=== PATIENT | female | born 1955 | race Caucasian/White ===

== ENCOUNTER 2022-04-06 16:14 | Inpatient (IN) | payer MEDICARE ==
[~2022-04-06] VITALS: Wt 66.0 kg
[2022-04-06] VITALS (7 sets, daily range): BP systolic 102–126; BP diastolic 47–66; PULSE 91–101; TEMP 98.2–99.5
[~2022-04-06 16:14] MED LIST: BACTRIM DS 8001 TAB PO; LORTAB 5/500 501 TAB PO; NO HOME MEDICATIONS
[2022-04-06] MEDS ORDERED: HYDROXYURE500 MG/CAP PO (16:31)
[2022-04-06] MEDS ORDERED: PREDNISONE20 MG PO (16:32)
[2022-04-06] MEDS ORDERED: VANTIN 200200 MG/TAB (16:32)
[2022-04-06 17:07] LABS: BASO # 0.1 K/mm3 (0.0-0.2); BASO % 1.6 % (0.0-2.0); EOS # 0.1 K/mm3 (0.0-0.7); EOS % 1.4 % (0.0-4.0); GRAN # 2.6 K/mm3 (1.4-6.5); GRAN % 53.7 % (42.2-75.2); LYMPH # 0.7 K/mm3 (1.2-3.4); LYMPH % 15.1 % (20.0-51.0); MEAN CELL VOLUME 109 fl (80.0-100.0); MEAN CORPUSCULAR HGB CONC 35 g/dl (33.0-37.0); MEAN PLATELET VOLUME 12.4 fl (7.4-10.4); MONO # 0.5 K/mm3 (0.1-0.6); MONO % 10.8 % (1.7-9.3); RED BLOOD COUNT 1.53 M/mm3 (4.10-5.30)
[2022-04-06 17:12] LABS: HEMATOCRIT 16.6 % (37.0-47.0); HEMOGLOBIN 5.8 g/dl (12.5-16.0); MEAN CORPUSCULAR HEMOGLOBIN 38 pg (27-31)
[2022-04-06 17:13] LABS: PLATELET COUNT 30 K/mm3 (130-400)
[2022-04-06 17:30] LABS: TROPONIN-I 0.013 ng/mL (0.00-0.033)
[2022-04-06 17:51] LABS: ALBUMIN 3.7 gm/dL (3.4-4.8); BILIRUBIN,TOTAL 0.7 mg/dL (0.2-1.2); CALCIUM 8.6 mg/dL (8.4-10.2); CREATININE, serum 0.71 mg/dL (0.57-1.11); POTASSIUM 3.9 mmol/L (3.5-4.5); TOTAL PROTEIN 6.2 gm/dL (6.2-8.1)
[2022-04-06 18:14] LABS: BAND 7 % (0-10); BASOPHIL 5 % (0-2); EOSINOPHIL 3 % (0-4); LYMPHOCYTE 27 % (20.0-51.0); NEUTROPHILS 53 % (42.0-75.2)
[2022-04-06 18:15] LABS: HYPOCHROMIA 1+; PLATELET ESTIMATE DECREASED (NORMAL)
[2022-04-06 19:51] LABS: IRON,SERUM 197 ug/dL (50-175)
[2022-04-06 20:03] LABS: COLLECTION METHOD CLEAN CATCH
[2022-04-06 20:08] LABS: PH 7 (5-8); SQUAMOUS EPITHELIAL None Seen /hpf (0-10); URINE APPEARANCE Clear (CLEAR/HAZY); URINE BACTERIA None Seen /hpf (NONE SEEN); URINE BILIRUBIN Negative (NEGATIVE); URINE BLOOD Negative (NEGATIVE); URINE COLOR Straw (YELLOW); URINE GLUCOSE Negative (NEGATIVE); URINE KETONE Negative (NEGATIVE); URINE LEUKOCYTE ESTERASE Negative (NEGATIVE); URINE NITRATE Negative (NEGATIVE); URINE PROTEIN(semi-quant) Negative (NEGATIVE); URINE RBC None Seen /hpf (0-2); URINE UROBILINOGEN Negative (NEGATIVE)
[2022-04-06 20:21] LABS: RETIC # 0.01 M/mm3 (0.02-0.16); RETIC % 0.9 % (0.5-3.52)
--- NOTE | 2022-04-06 22:32 | NUR ---
PATIENT ADMITTED TO MEDICAL FLOOR. PATIENT CONTINUES TO ENDORSE SHORTNESS OF BREATH. SATTING WELL ON ROOM AIR. 1 UNIT OF PRBCS TRANSFUSED. PER HOSPITALIST, WILL RECHECK HGB IN APPROX ONE HOUR. ALL SAFETY MEASURES MAINTAINED. WILL CONTINUE TO MONITOR
[2022-04-06 23:27] LABS: HEMOGLOBIN 6.9 g/dl (12.5-16.0)
[2022-04-06 23:28] LABS: HEMATOCRIT 19.1 % (37.0-47.0)
[2022-04-07] VITALS (13 sets, daily range): BP systolic 91–127; BP diastolic 36–59; PULSE 78–91; TEMP 97.9–99
[2022-04-07 06:20] LABS: MEAN CORPUSCULAR HGB CONC 35 g/dl (33.0-37.0); MEAN PLATELET VOLUME 10.1 fl (7.4-10.4); RED BLOOD COUNT 2.31 M/mm3 (4.10-5.30); REDCELL DISTRIBUTION WIDTH-CV 16.6 % (11.5-14.5)
[2022-04-07 06:36] LABS: CALCIUM 8.5 mg/dL (8.4-10.2); CREATININE, serum 0.73 mg/dL (0.57-1.11); MAGNESIUM 2.1 mg/dL (1.6-2.6); POTASSIUM 4.2 mmol/L (3.5-4.5)
[2022-04-07 06:44] LABS: HEMATOCRIT 23.1 % (37.0-47.0); HEMOGLOBIN 8.1 g/dl (12.5-16.0); MEAN CORPUSCULAR HEMOGLOBIN 35 pg (27-31)
[2022-04-07 06:45] LABS: PLATELET COUNT 27 K/mm3 (130-400)
[2022-04-07 06:46] LABS: MEAN CELL VOLUME 100 fl (80.0-100.0)
[2022-04-07 07:24] LABS: BAND 6 % (0-10); BASOPHIL 3 % (0-2)
[2022-04-07 07:26] LABS: ANISOCYTOSIS 1+; PLATELET ESTIMATE DECREASED (NORMAL)
[2022-04-07 07:30] LABS: LYMPHOCYTE 17 % (20.0-51.0); NEUTROPHILS 64 % (42.0-75.2)
--- NOTE | 2022-04-07 10:40 | NUR ---
PATIENT RESTING COMFORTABLY IN BED. VOCALIZING ANTICIPATION TO BE DISCHARGED HOME. NO COMPLAINTS OF PAIN. NO DYSPNEA, OR SOB. VERY PLESANT. INDEPENDENT IN ROOM .
--- NOTE | 2022-04-07 10:58 | NUR ---
Territory Sales Representative met with patient for intake assessment/discharge planning. She presents alert and oriented, and she consents to a discussion stating, "I want to go home. Tell the doctor I'm ready to go home." Patient informs she lives at home with her daughter Estefany, and her son-in-law Milton Salazar ([phone]) and their two children ages 3 and 5. Another 15 year old child lives with them part-time. She states her home is large enough for all of them, and for this she is grateful. She confirms she is independent in her ADLS/IADLS at home, and she uses no medical equipment; she has no oxygen needs. She states her primary care physician is Dr. Zavala and Dr. Dave manages her "platelet levels." She expresses frustration that Dr. Dave hasn't been reached at her treatment team's attempt to contact yesterday and today. Patient denies difficulty obtaining her medications, and she utilizes [facility]. She has received DPOA-HC paperwork and discussed with her family. Her daughter took the paperwork home and her son-in-law Milton and her son, Leonid Dumont ([phone]), will be appointed as her DPOA-HC; daughter will assure the paperwork is completed and filed in her medical record. Patient's only request at this time is that her physician comes to see her to discuss discharge plans; she identifies no needs at this time and a plan to go home to her family. *Discharge plan: home with adult child and family*
[2022-04-07 12:11] LABS: ALBUMIN 3.4 gm/dL (3.4-4.8); BILIRUBIN,TOTAL 0.8 mg/dL (0.2-1.2); TOTAL PROTEIN 5.7 gm/dL (6.2-8.1)
[2022-04-07 12:28] LABS: BILIRUBIN,DIRECT 0.3 mg/dL (0.0-0.5)
--- NOTE | 2022-04-07 16:57 | NUR ---
RECIEVED PHONE CALL FROM [employer], PATIENT HR IN 160'S. CLARIFIED THAT THE TACHYCARDIA LASTED ROUGHLY 30SEC. LIBRARY SERIALS ASSISTANT INDICATED THAT RHYTHM "SNAPPED ON AND OFF AGAIN". AUTHOR REVIEWED PRINTOUT OF STRIP. VERIFIYING PATIENT HAD RUN OF SVT. PATIENT HAS NO COMPLAINTS OF CHEST PAIN. SHE HAD JUST RETURNE TO BED, HAVING USED THE RESTROOM, AND PLACING HER SCDS BACK ON HER LOWER EXTREMITIES. SHE DID DESCRIBE HAVING A COUGHING FIT AND FEELING CHEST PALPITATIONS. ALSO STATED THAT THEY SUBSIDED AFTER SETTELING IN BED AND RESTING. DR. ROGERS NOTIFIED BY PHONE, ORDERED EKG. ORDER PLACED AND RT NOTIFIED. AWAITING RESULTS.
--- NOTE | 2022-04-07 18:02 | NUR ---
PATIENT INDEPENDENT IN ROOM, SHOWERED INDEPENDENTLY. NO COMPLAINTS OF PAIN. SOME SKIN DISCOLORATION ON FEET, ANKLES AND INNER THIGHS. DR. ESTRELLA CONCERNS FOR PETECHIA. PLATLETS AT 27 THIS AM. WILL CONTINUE TO MONITOR. PATIENT EDUCATED ON SAFE MOBILITY, SOFT BRISTLE TOOTH BRUSH, NO SHAVING AT THIS TIME. DARK PURPLE BRUISE ON LEFT AC FROM MORNING BLOOD DRAW. PATIENT HAD NOTED RUN OF SVT TODAY. EXPERIENCED SOME PALPATIONS. EKG ORDERED, NSR. TELE STRIP AND EKG ON CHART. NO OTHER SIGNIFICANT EVENTS THIS SHIFT. PATIENT VERY PLESANT.
[2022-04-08 03:33] VITALS: BP 101/55; PULSE 77; TEMP 98
--- NOTE | 2022-04-08 06:25 | NUR ---
ASSUMED CARE OF PATIENT AFTER RECEIVING BEDSIDE REPORT. ASSESSMENT COMPLETED, VSS. PATIENT DENIES COMPLAINTS, CONCERNS, AND QUESTIONS AT THIS TIME. NO ACUTE EVENTS OVERNIGHT. BEDSIDE REPORT TO BE GIVEN TO ONCOMING SHIFT.
[2022-04-08 06:41] LABS: MEAN CELL VOLUME 104 fl (80.0-100.0); MEAN CORPUSCULAR HGB CONC 34 g/dl (33.0-37.0); MEAN PLATELET VOLUME 13.1 fl (7.4-10.4); RED BLOOD COUNT 2.21 M/mm3 (4.10-5.30); REDCELL DISTRIBUTION WIDTH-CV 16.6 % (11.5-14.5)
[2022-04-08 06:54] LABS: HEMATOCRIT 22.9 % (37.0-47.0); HEMOGLOBIN 7.8 g/dl (12.5-16.0); MEAN CORPUSCULAR HEMOGLOBIN 35 pg (27-31)
[2022-04-08 06:55] LABS: PLATELET COUNT 23 K/mm3 (130-400)
[2022-04-08 07:04] VITALS: BP 111/49; PULSE 80; TEMP 97.9
[2022-04-08 09:35] LABS: PATHOLOGY DIFF REVIEW OK +
--- NOTE | 2022-04-08 10:56 | NUR ---
Assessment completed, alert/oriented, vital signs stable, denies pain, reports feeling "about the same", still has moist non-prodcutive cough, some coarse sounds and exp wheezing in right lung [place]/ diminsihed bases, oxygen levels are WNL on room air, PUlm consulted and making some changes to ABx and adding some PO steroids, hgbn and Platelets both came down slightly from yesterday/ ONc consulted, no blood products ordered to be given at this time, heart RRR/ distal pulses are palpable, right arm IV infiltrated/ removed and started new IV to left forearm, patient wants to go home, denies needs at this time, will continue to monitor
[2022-04-08 11:25] VITALS: BP 127/49; PULSE 92; TEMP 97.7
--- NOTE | 2022-04-08 12:19 | NUR ---
Mandy: Other Situation: Electric Installer stopped by room on rounds Background: Pt is doing well. No complaints Assessment: Had a good conversation. Recommendation: Electric Installer will follow up as needed
[2022-04-08 15:37] VITALS: BP 150/53; PULSE 113; TEMP 97.8
[2022-04-08 18:37] LABS: MEAN CELL VOLUME 102 fl (80.0-100.0); MEAN CORPUSCULAR HGB CONC 35 g/dl (33.0-37.0); MEAN PLATELET VOLUME 12.5 fl (7.4-10.4); RED BLOOD COUNT 2.46 M/mm3 (4.10-5.30); REDCELL DISTRIBUTION WIDTH-CV 15.9 % (11.5-14.5)
[2022-04-08 18:38] LABS: HEMOGLOBIN 8.7 g/dl (12.5-16.0); MEAN CORPUSCULAR HEMOGLOBIN 35 pg (27-31)
[2022-04-08 18:40] LABS: PLATELET COUNT 24 K/mm3 (130-400)
[2022-04-08 19:23] LABS: BAND 9 % (0-10); BASOPHIL 2 % (0-2); EOSINOPHIL 1 % (0-4); LYMPHOCYTE 11 % (20.0-51.0); METAMYELOCYTE 3 % (0-0); MYELOCYTE 1 % (0-0); NEUTROPHILS 68 % (42.0-75.2); NUCLEATED RED BLOOD CELL 1 (0-6); PLATELET ESTIMATE DECREASED (NORMAL)
[2022-04-08 19:24] LABS: ANISOCYTOSIS 1+
[2022-04-08 19:58] VITALS: BP 125/48; PULSE 100; TEMP 98.6
[2022-04-09 00:29] VITALS: BP 112/51; PULSE 100; TEMP 98.2
[2022-04-09 04:30] VITALS: BP 109/50; PULSE 96; TEMP 98.4
--- NOTE | 2022-04-09 06:00 | NUR ---
RESTED THOUGHT THE NIGHT WITHOUT INCIDENT. NEEDS MET.
--- NOTE | 2022-04-09 06:56 | NUR ---
Report received, assumed care for day shift.
[2022-04-09 07:31] LABS: MEAN CELL VOLUME 103 fl (80.0-100.0); MEAN CORPUSCULAR HGB CONC 34 g/dl (33.0-37.0); MEAN PLATELET VOLUME 11.8 fl (7.4-10.4); RED BLOOD COUNT 2.29 M/mm3 (4.10-5.30); REDCELL DISTRIBUTION WIDTH-CV 15.9 % (11.5-14.5)
[2022-04-09 07:33] LABS: HEMATOCRIT 23.5 % (37.0-47.0); MEAN CORPUSCULAR HEMOGLOBIN 35 pg (27-31)
[2022-04-09 07:34] LABS: PLATELET COUNT 21 K/mm3 (130-400)
[2022-04-09 07:55] VITALS: BP 104/49; PULSE 77; TEMP 98
--- NOTE | 2022-04-09 08:00 | NUR ---
Assessment complete. A&Ox3. Denies pain/nausea/shortness of breath. VS stable. INT to left [id number] well no s/s of infiltration noted. TELE reporting SR/ST. Noted to have occasional exp wheeze to LLL, otherwise clear. Plan of care discussed for this shift to include meds/breathing tx/calling for questions/concerns. Verbalizes understanding. Call light in reach. Will monitor.
--- NOTE | 2022-04-09 08:01 | NUR ---
Critical lab called to MARIE Bailey-platelet count of 21. No new orders received.
[2022-04-09 08:27] LABS: BAND 9 % (0-10); BASOPHIL 8 % (0-2); EOSINOPHIL 1 % (0-4); LYMPHOCYTE 29 % (20.0-51.0); METAMYELOCYTE 5 % (0-0); MYELOCYTE 3 % (0-0); NEUTROPHILS 43 % (42.0-75.2); OVALOCYTES 1+; PLATELET ESTIMATE DECREASED (NORMAL)
[2022-04-09 08:28] LABS: TEAR DROP CELLS 1+
[2022-04-09] MEDS ORDERED: FOLIC ACID 11 MG/TA1 PO (09:37)
[2022-04-09] MEDS ORDERED: CEFTIN500 MG PO (09:38)
[2022-04-09] MEDS ORDERED: RT ADVAIR HFA 1112 G IH (09:38)
[2022-04-09] MEDS ORDERED: PREDNISONE10 MG PO (09:39)
--- NOTE | 2022-04-09 09:45 | NUR ---
Dr Owen/MARIE Valle at bedside.
--- NOTE | 2022-04-09 10:12 | NUR ---
The patient is to discharge back home with her family today, 04/09. BIJAN met with the patient and presented and read the IM form outloud to her. The patient verbalized understanding of agreement to discharge today. She signed the form and BIJAN provided her with a copy. She had no questions or concerns for SW. No additional needs at this time.
--- NOTE | 2022-04-09 10:20 | NUR ---
Discharge instructions given both verbal and handwritten. Discusse f/u appt/home medications/s/s of infection and when to return to the ED. Verbalizes understanding/denies quesitons/concerns. 22g INT to left forearm DCd-cath intact. Instructed to excelsior picker home medications at pharmacy and take as prescribed. Currently waiting on ride.
--- NOTE | 2022-04-09 11:22 | NUR ---
Escorted off floor by KIRTI Vargas via wheelchair with family in stable condition.
[2022-04-10 10:19] LABS: ANA SCREEN with REFLEX Negative (Negative)
[2022-04-10 19:29] LABS: ANGIOTENSIN CONVERTING ENZYME 22 U/L (16 - 85)
[2022-04-12 20:03] LABS: C-ANCA 36 U/mL (0-99)
== END 2022-04-09 11:23 | disposition home or self-care (01) | DRG 812 ==
LOC: COL.ER 16:14 → MEDICAL 18:41
PROVIDERS: Physician Assistant; Student in an Organized Health Care Education/Training Program; ADMIT Internal Medicine
DX: D64.9 Anemia, unspecified (principal); J44.1 Chronic obstructive pulmonary disease with (acute) exacerbation; J44.0 Chronic obstructive pulmonary disease with (acute) lower respiratory infection; R16.1 Splenomegaly, not elsewhere classified; J47.9 Bronchiectasis, uncomplicated; D45 Polycythemia vera; D47.3 Essential (hemorrhagic) thrombocythemia; J20.9 Acute bronchitis, unspecified; Z87.891 Personal history of nicotine dependence; Z79.52 Long term (current) use of systemic steroids
CPT/HCPCS: 99223-AI; 99233-AI; 99239; J0692; J0696; J1100; J7512; P9016; Q9967

== ENCOUNTER 2022-04-15 07:43 | Outpatient (CLI) | payer MEDICARE ==
[~2022-04-15] VITALS: Ht 162.6 cm; Wt 64.8 kg
[~2022-04-15 07:43] MED LIST changes: +CEFTIN500 MG PO; +FOLIC ACID 11 MG/TA1 PO; +HYDROXYURE500 MG/CAP PO; +PREDNISONE10 MG PO; +PREDNISONE20 MG PO; +RT ADVAIR HFA 1112 G IH; +VANTIN 200200 MG/TAB
[2022-04-15 08:21] VITALS: BP 121/50; PULSE 99; TEMP 97.9
[2022-04-15 08:44] LABS: MEAN CELL VOLUME 102 fl (80.0-100.0); MEAN CORPUSCULAR HGB CONC 35 g/dl (33.0-37.0); MEAN PLATELET VOLUME 12.5 fl (7.4-10.4); RED BLOOD COUNT 2.27 M/mm3 (4.10-5.30); REDCELL DISTRIBUTION WIDTH-CV 15.5 % (11.5-14.5)
[2022-04-15 08:53] LABS: HEMATOCRIT 23.1 % (37.0-47.0); HEMOGLOBIN 8.1 g/dl (12.5-16.0); MEAN CORPUSCULAR HEMOGLOBIN 36 pg (27-31)
[2022-04-15 08:54] LABS: PLATELET COUNT 23 K/mm3 (130-400)
--- NOTE | 2022-04-15 08:55 | NUR ---
Lashaun called from lab to report a critical lab value for platelets: 23 (L). RN verbally notified DR at this time in PACU. verbalized understanding. No new orders recieved.
[2022-04-15 09:35] LABS: BAND 13 % (0-10); BASOPHIL 2 % (0-2); EOSINOPHIL 2 % (0-4); LYMPHOCYTE 17 % (20.0-51.0); METAMYELOCYTE 3 % (0-0); MYELOCYTE 3 % (0-0); NEUTROPHILS 54 % (42.0-75.2)
[2022-04-15 09:36] LABS: PLATELET ESTIMATE DECREASED (NORMAL)
[2022-04-15 09:37] LABS: OVALOCYTES 1+; TEAR DROP CELLS 1+
[2022-04-15 10:10] VITALS: BP 100/43; PULSE 81; TEMP 97.8
--- NOTE | 2022-04-15 10:10 | NUR ---
PT arrived from procedure drowsy but oriented. Monitors applied and VSS Verbal report obtained from Fior RN: L side was used, PT has been flat for "a few minutes". Pt will remain flat for a full 10 minutes before RN is to check site. PT provided a warm muffin, juice and hot coffee per request. Denies nausea. Denies pain. Side rails x2. Call dominguez within reach on side table.
--- NOTE | 2022-04-15 10:23 | NUR ---
VSS. PT continues to deny nausea. NO vomiting. Denies pain. Site is dry and intact; no bleeding or drainage noted. Bandage remains clean. PT has had half her muffin and continues to drink coffee. Call dominguez remains within reach. PT expressed desire to be discharged.
[2022-04-15 10:25] VITALS: BP 98/45; PULSE 88
[2022-04-15 10:40] VITALS: BP 100/45; PULSE 87
--- NOTE | 2022-04-15 10:40 | NUR ---
VSS. PT continues to deny nausea. Site remains clean, dry and intact upon second observation. IV discontinued. Catheter tip intact. Pressure bandage applied. NO reddness or swelling noted. DC instructions and educational material reveiwed with the PT, who verbalized understanding and signed the realted paperwork. PT moved to bedside without difficulty, and denied needing assistance changing into personal clothes. Call dominguez remains within reach.
--- NOTE | 2022-04-15 11:10 | NUR ---
Pt taken via wheelchair to private vehicle for dc home with friend driving. Pt left with dc teaching packet and all personal belongings.
[2022-04-15 11:33] VITALS: BP 106/92; PULSE 81
== END 2022-04-15 11:10 | disposition home or self-care (01) ==
LOC: SDCO 07:43
PROVIDERS: Pathology Anatomic Pathology & Clinical Pathology
DX: C92.00 Acute myeloblastic leukemia, not having achieved remission (principal); Z87.891 Personal history of nicotine dependence
CPT/HCPCS: J2704; J7120

== ENCOUNTER 2022-06-12 06:55 | Outpatient (CLI) | payer MEDICARE ==
[~2022-06-12] VITALS: Ht 157.5 cm; Wt 62.0 kg
[2022-06-12 07:29] VITALS: BP 125/59; PULSE 60; TEMP 97
[2022-06-12] MEDS ORDERED: K-DUR 10 MEQ T10 MEQ PO (07:53)
[2022-06-12] MEDS ORDERED: LEVAQUIN 5500 MG/TA1 PO (07:58)
[2022-06-12] MEDS ORDERED: ZOVIRAX400 MG PO (07:58)
[2022-06-12] MEDS ORDERED: TOPROL XL 50MG50 MG PO (07:58)
[2022-06-12] MEDS ORDERED: ABSORBASE TOP (07:59)
[2022-06-12] MEDS ORDERED: NOXAFILTAB PO (08:00)
[2022-06-12] MEDS ORDERED: ZOFRAN ODT4 MG PO (08:00)
[2022-06-12] MEDS ORDERED: PHOS-NAK1 PDR PO (08:01)
[2022-06-12 08:27] LABS: MEAN CELL VOLUME 89 fl (80.0-100.0); MEAN CORPUSCULAR HGB CONC 32 g/dl (33.0-37.0); MEAN PLATELET VOLUME 13.9 fl (7.4-10.4); PLATELET COUNT 262 K/mm3 (130-400); RED BLOOD COUNT 2.87 M/mm3 (4.10-5.30); REDCELL DISTRIBUTION WIDTH-CV 19.7 % (11.5-14.5)
[2022-06-12 08:44] LABS: HEMATOCRIT 25.4 % (37.0-47.0); HEMOGLOBIN 8.1 g/dl (12.5-16.0); MEAN CORPUSCULAR HEMOGLOBIN 28 pg (27-31)
--- NOTE | 2022-06-12 08:45 | NUR ---
The patient was taken over via cart to the recovery room to be prepped for the procedure. MEET Hopper was notified of the patient's WBC 1.6 that was reported from the lab and she will let Dr. You know prior to the procedure. Will continue to montior the patient she returns to the unit.
[2022-06-12 08:53] LABS: ANISOCYTOSIS 2+; BAND 2 % (0-10); HYPOCHROMIA 1+; LYMPHOCYTE 9 % (20.0-51.0); METAMYELOCYTE 1 % (0-0); NEUTROPHILS 68 % (42.0-75.2); OVALOCYTES 1+; TEAR DROP CELLS 1+
[2022-06-12 08:54] LABS: PLATELET ESTIMATE DECREASED (NORMAL); SCHISTOCYTES 1+
[2022-06-12 09:35] VITALS: BP 113/67; PULSE 55; TEMP 97.2
--- NOTE | 2022-06-12 09:35 | NUR ---
The patient arrived back to [facility] from the recovery room at this time. The patient appears alert and oriented and denies any pain or nausea at this time. The patient is lying in the supine position as ordered post procedure. The patient's post procedure vital signs were started at this time. The patient has ice chips that she appears to be tolerating well. The patient denies wanting anything further to eat or drink at this time. The patient's 4x4 and bandaid to her left hip appears clean, dry and intact. Call light is within reach. Denies any further needs at this time.
[2022-06-12 09:50] VITALS: BP 123/49; PULSE 58
--- NOTE | 2022-06-12 09:50 | NUR ---
The patient continues to be in the supine position. Vital signs appear stable. Call light remains within reach.
[2022-06-12 10:05] VITALS: BP 98/48; PULSE 57
--- NOTE | 2022-06-12 10:05 | NUR ---
The patient verbalizes a desire to be discharged home. The patient is going to contact her son to come pick her up at the ER entrance.
--- NOTE | 2022-06-12 10:20 | NUR ---
Discharge instructions were reviewed with the patient at this time. She verbalized understanding and has no questions for the nurse at this time. The patient's PICC line was flushed and clamped at this time. The patient is going to get dressed and notify the staff when she is ready to be escorted out.
--- NOTE | 2022-06-12 10:30 | NUR ---
The patient was escorted out via wheelchair to private vehicle by MEET Moe. The patient's belongings and discharge paperwork were sent with her. The patient's son is present to drive her home.
== END 2022-06-12 10:30 | disposition home or self-care (01) ==
LOC: SDCO 06:55
PROVIDERS: Pathology Anatomic Pathology & Clinical Pathology
DX: C92.90 Myeloid leukemia, unspecified, not having achieved remission (principal); D64.9 Anemia, unspecified; D72.819 Decreased white blood cell count, unspecified
CPT/HCPCS: J2405; J2704; J7120